=== PATIENT | female | born 1995 | race Caucasian/White ===

== ENCOUNTER 2020-12-28 09:55 | Emergency (ER) | payer OTHER | END 2020-12-28 11:42 | disposition left against medical advice (07) | LOC: ER1 09:55 | DX: Z53.21 Procedure and treatment not carried out due to patient leaving prior to being seen by health care provider (principal) | CPT/HCPCS: 81001 ==

== ENCOUNTER 2021-02-23 07:48 | Emergency (ER) | payer OTHER ==
[2021-02-23] MEDS ORDERED: IBUPROFEN600 MG PO (09:22)
== END 2021-02-23 09:32 | disposition home or self-care (01) ==
LOC: ER1 07:48
DX: S60.211A Contusion of right wrist, initial encounter (principal); W22.8XXA Striking against or struck by other objects, initial encounter
CPT/HCPCS: 73100; 99283

== ENCOUNTER 2021-03-01 16:44 | Emergency (ER) | payer OTHER ==
[~2021-03-01 16:44] MED LIST: IBUPROFEN600 MG PO
[2021-03-01] MEDS ORDERED: MOBIC15 MG PO (18:04)
== END 2021-03-01 18:30 | disposition home or self-care (01) ==
LOC: ER1 16:44
DX: S63.501A Unspecified sprain of right wrist, initial encounter (principal); S63.91XA Sprain of unspecified part of right wrist and hand, initial encounter; F17.200 Nicotine dependence, unspecified, uncomplicated; J45.909 Unspecified asthma, uncomplicated; X58.XXXA Exposure to other specified factors, initial encounter
CPT/HCPCS: 73130; 96372; 99283; J1885

== ENCOUNTER 2021-05-30 19:01 | Emergency (ER) | payer OTHER ==
[~2021-05-30 19:01] MED LIST changes: +MOBIC15 MG PO
[2021-05-30 19:38] LABS: HEMOGLOBIN 12.9 gm/dl (12.3-15.3); RED BLOOD COUNT 4.83 M/UL (4.00-5.10); WHITE BLOOD COUNT 13.3 K/UL (4.5-11.0)
[2021-05-30 19:52] LABS: BUN/CREATININE RATIO 10 (0-10)
[2021-05-30] MEDS ORDERED: ZOFRAN ODT 4 MG4 MG PO (21:08)
[2021-05-30] MEDS ORDERED: BENTYL 20MG TAB20 MG PO (21:08)
== END 2021-05-30 21:28 | disposition home or self-care (01) ==
LOC: ER1 19:01
PROVIDERS: Physician Assistant
DX: N93.9 Abnormal uterine and vaginal bleeding, unspecified (principal); F17.210 Nicotine dependence, cigarettes, uncomplicated
CPT/HCPCS: 80048; 81001; 84703; 85025; 87086; 99284